=== PATIENT | female | born 1955 | race Caucasian/White ===

== ENCOUNTER 2024-02-21 15:40 | Outpatient (CLI) | payer BC | END 2024-02-21 15:41 | disposition home or self-care (01) | LOC: BICCT 15:40 | PROVIDERS: ATTEND Orthopaedic Surgery | DX: M17.12 Unilateral primary osteoarthritis, left knee (principal); M71.22 Synovial cyst of popliteal space [Baker], left knee ==

== ENCOUNTER 2024-02-27 16:03 | Outpatient (CLI) | payer BC ==
[2024-02-27 17:30] LABS: Bilirubin Negative (Negative); Blood, Urine Trace (Negative); Clarity Clear (Clear); Glucose, Urine (Dipstick) Normal (Negative); Ketone, Urine Negative (Negative); Leukocyte 250 Leu/uL (Negative); Nitrite Negative (Negative); Protein, Urine (Dipstick) Negative (Neg-Trace); Specific Gravity, Urine 1.027 (1.002-1.036); pH, Urine 5.5 (5.0-9.0)
[2024-02-27 17:32] LABS: INR-International Normal Ratio 1.1; Prothrombin Time 14.3 sec (12.0-14.7)
[2024-02-27 17:40] LABS: #Basophils 0.07 10x3/uL (0.0-0.2); %Basophils 0.7 % (0.0-1.0); %Eosinophils 3.2 % (0.0-10.0); %Monocytes 8.6 % (0.0-10.0); %Neutrophils 64.2 % (42.0-75.0); Hemoglobin 13.5 g/dL (12.0-16.0); Mean Corpuscular HGB CONC 32.9 g/dL (32.0-36.0); Mean Corpuscular Hemoglobin 29.7 pg (27.0-31.0); Mean Corpuscular Volume 90.1 fL (78.0-98.0); Mean Platelet Volume 10.5 fL (7.4-10.4); Platelet Count 311 10x3/uL (130-400); RBC Distribution Width 12.1 % (11.5-14.5); Red Blood Cell (RBC) Count 4.55 mill/uL (4.20-5.40)
[2024-02-27 18:14] LABS: Calc. Creatinine Clearance 0 mL/min (70-130); Estimated GFR 97
[2024-02-27 18:15] LABS: Anion Gap 13 mmol/L (10-20); BUN (Urea Nitrogen) 15 mg/dL (9.8-20.1); Calcium 9.1 mg/dL (7.8-10.44); Carbon Dioxide 28 mmol/L (23-31); Chloride 104 mmol/L (98-107); Glucose 97 mg/dL (80-115); Potassium 3.4 mmol/L (3.5-5.1); Sodium 142 mmol/L (136-145)
== END 2024-02-27 16:04 | disposition home or self-care (01) ==
LOC: LABBT 16:03
PROVIDERS: ATTEND Orthopaedic Surgery
DX: Z01.818 Encounter for other preprocedural examination (principal); M17.12 Unilateral primary osteoarthritis, left knee
CPT/HCPCS: 71046; 80048; 81003; 85025; 85610; 87081; 93005; 93010

== ENCOUNTER 2024-03-03 05:35 | Observation (INO) | payer BC ==
[2024-02-27 16:39] VITALS: BMI 36.6
[2024-03-03] MEDS ORDERED: Vancomycin (BATCH) 300 ML ONE (06:00)
[2024-03-03] MEDS ORDERED: Sodium Chloride 0.9% 100 ML ONE (06:00)
[2024-03-03] MEDS ORDERED: Tranexamic Acid 1,000 MG/10 ML VIAL ONE (06:00)
[2024-03-03] MEDS ORDERED: fentaNYL PF 100 MCG/2 ML SYRINGE ONE ×2 (06:11→08:05)
[2024-03-03] MEDS ORDERED: PROPOFOL 20 ML ONE (06:11)
[2024-03-03] MEDS ORDERED: Midazolam HCl 2 mg/2 ml Vial ONE (06:11)
[2024-03-03] MEDS ORDERED: Dexamethasone 4 mg/ml Vial ONE (06:14)
[2024-03-03] MEDS ORDERED: Ondansetron PF 4 MG/2 ML Vial ONE (06:14)
[2024-03-03] MEDS ORDERED: Bupivacaine PF 0.5% 30 ML VIAL ONE (06:22)
[2024-03-03] MEDS ORDERED: CEFAZOLIN 2 GM VIAL ONE (06:53)
[2024-03-03] MEDS ORDERED: PHENYLEPHRINE-NS 100 MCG/ML 10 ML SYRINGE ONE ×2 (07:23→07:51)
[2024-03-03] MEDS ORDERED: Ropivacaine 0.5% HCl/PF (150 MG/30 ML VIAL) ONE (07:29)
[2024-03-03] MEDS ORDERED: Lidocaine 1% (PF) 30 ML VIAL ONE (07:29)
[2024-03-03] MEDS ORDERED: EPINEPHrine 1 MG/ML VIAL ONE (07:29)
[2024-03-03] MEDS ORDERED: Promethazine HCl 25 MG/ML VIAL IM PRN ×2 (07:30→08:42)
[2024-03-03] MEDS ORDERED: fentaNYL 50 mcg/mL 1 mL Vial SLOW IVP PRN (07:30)
[2024-03-03] MEDS ORDERED: traMADol HCl 50 MG TAB PO PRN ×2 (07:30)
[2024-03-03] MEDS ORDERED: Ondansetron PF 4 MG/2 ML Vial IVP PRN ×2 (07:30→08:42)
[2024-03-03] MEDS ORDERED: HYDROcodone/Acetaminophen 10/325 mg Tablet PO PRN (07:30)
[2024-03-03] MEDS ORDERED: Ropivacaine 0.2% 550 ML 550 ML NERVE BLCK SCH (07:30)
[2024-03-03] MEDS ORDERED: Zolpidem Tartrate 5 MG TAB PO PRN (08:42)
[2024-03-03] MEDS ORDERED: diphenhydrAMINE 25 MG CAP PO PRN (08:42)
[2024-03-03] MEDS ORDERED: Acetaminophen 325 MG TAB PO PRN (08:42)
[2024-03-03] MEDS ORDERED: Tranexamic Acid 1,000 MG in Sodium Chloride 0.9% 100 ML IVPB SCH (08:45)
[2024-03-03] MEDS ORDERED: Fentanyl 250 MCG/5 ML VIAL ONE (09:04)
[2024-03-03] MEDS ORDERED: HYDROmorphone 0.5 MG/0.5 ML SYRINGE ONE (09:04)
[2024-03-03] MEDS ORDERED: Promethazine HCl 25 MG/ML VIAL ONE (09:17)
[2024-03-03] MEDS: Sodium Chloride 0.9% 1,000 ML IV SCH (10:20)
[2024-03-03] MEDS: Valsartan 80 MG TAB PO SCH (14:30)
[2024-03-03] MEDS: Aspirin 81 mg Enteric Coated Tablet PO SCH (14:30)
[2024-03-03] MEDS: Indapamide 1.25 MG TAB PO SCH (14:30)
[2024-03-03] MEDS: Cholecalciferol 1,000 UNITS (25 MCG) TAB PO SCH (14:30)
[2024-03-03] MEDS: CEFAZOLIN 2 GM in Sodium Chloride 0.9% 100 ML IVPB SCH (14:33)
[2024-03-03] MEDS: Ketorolac Tromethamine 30 MG (1 mL) VIAL IVP SCH (14:34)
[2024-03-03] MEDS: Vancomycin (BATCH) 1.5 GM in Premix 1 BAG IVPB SCH (20:10)
[2024-03-03] MEDS: Atorvastatin Calcium 20 MG TAB PO SCH (20:17)
[2024-03-04 05:18] LABS: Hematocrit 32.9 % (36.0-47.0); Hemoglobin 10.8 g/dL (12.0-16.0); Mean Corpuscular HGB CONC 32.8 g/dL (32.0-36.0); Mean Corpuscular Hemoglobin 29.9 pg (27.0-31.0); Mean Corpuscular Volume 91.1 fL (78.0-98.0); Mean Platelet Volume 10.2 fL (7.4-10.4); Platelet Count 230 10x3/uL (130-400); RBC Distribution Width 12.2 % (11.5-14.5); Red Blood Cell (RBC) Count 3.61 mill/uL (4.20-5.40)
[2024-03-04 07:37] VITALS: TEMP 97.8
[2024-03-04] MEDS: Senokot S 8.6-50 MG TAB PO SCH (08:20)
[2024-03-04] MEDS: Multivitamin W/ Minerals 1 TAB PO SCH (08:20)
[2024-03-04] MEDS: Ferrous Gluconate 324 MG TAB PO SCH (08:20)
[2024-03-04] MEDS: HYDROcodone/Acetaminophen 10/325 mg Tablet PO PRN (08:26)
[2024-03-04 10:19] VITALS: BMI 36.6
[2024-03-04 11:36] VITALS: BP 128/75
== END 2024-03-04 12:44 | disposition home or self-care (01) ==
LOC: SDC 05:35 → SURG B 10:39 → SDC 12:23
PROVIDERS: ADMIT Orthopaedic Surgery; ATTEND Orthopaedic Surgery
PROC: 0SRD0JZ Replacement of Left Knee Joint with Synthetic Substitute, Open Approach (ICD-10-PCS; principal; 2024-03-04)
PROC: 3E0T3BZ Introduction of Anesthetic Agent into Peripheral Nerves and Plexi, Percutaneous Approach (ICD-10-PCS; 2024-03-04)
DX: M17.12 Unilateral primary osteoarthritis, left knee (principal); I10 Essential (primary) hypertension; E78.5 Hyperlipidemia, unspecified; Z90.49 Acquired absence of other specified parts of digestive tract; Z87.59 Personal history of other complications of pregnancy, childbirth and the puerperium; Z98.890 Other specified postprocedural states
CPT/HCPCS: 0055T; 27447; 64448; 36415; 85027; A4306; C1713; C1776; C1889; J0171; J0665; J1100; J1171; J1885; J2250; J2405; J2550; J2704; J2795; J3010; J3370; J7030